=== PATIENT | male | born 1945 | race Caucasian/White ===

== ENCOUNTER 2018-04-17 20:19 | Inpatient (IN) | payer MEDICARE, MEDICAID ==
[~2018-04-17] VITALS: Ht 170.2 cm; Wt 69.0 kg
[2018-04-17] MEDS ORDERED: PANTOPRAZOLE SODIUM 40 MG/VIAL IV ONE (21:00)
[2018-04-17 21:39] LABS: BASOPHILS % 1.2 % (0.0-2.0); EOSINOPHILS % 1.4 % (0.0-5.0); HEMATOCRIT. 43.7 % (42.0-52.0); HEMOGLOBIN. 14.9 g/dL (14.0-18.0); LYMPHOCYTES % 18.5 % (20.0-50.0); MEAN CORPUSCULAR HEMOGLOBIN 32.1 pg (28.0-32.0); MEAN CORPUSCULAR VOLUME 94.2 fL (80.0-94.0); MEAN PLATELET VOLUME 7.2 fl (7.4-10.4); MONOCYTES % 10.6 % (2.0-8.0); NEUTROPHILS % 68.3 % (40.0-76.0); PLATELET 166 x1000/uL (130-400); RED BLOOD CELL COUNT 4.64 mill/uL (4.7-6.1); RED CELL DISTRIBUTION WIDTH 16.2 % (11.6-14.6)
[2018-04-17 21:42] LABS: PROTHROMBIN TIME 9.8 sec (9.1-11.1)
[2018-04-17 21:45] LABS: CHLORIDE 98 mEq/L (98-107); ETHANOL BLOOD 225 mg/dL
[2018-04-17] MEDS ORDERED: SODIUM CHLORIDE 0.9% 1,000 ML IV ONE (22:33)
[2018-04-18] MEDS ORDERED: LORAZEPAM 2MG/ML CPJ IV NR (03:45)
[2018-04-18 04:00] VITALS: BP 122/74
[2018-04-18 05:42] VITALS: BP 122/74
[2018-04-18] MEDS ORDERED: ACETAMINOPHEN 325MG TABLET PO PRN (07:15)
[2018-04-18] MEDS ORDERED: SODIUM CHLORIDE 0.9% 1,000 ML IV SCH (07:15)
[2018-04-18] MEDS ORDERED: LORAZEPAM 2MG/ML CPJ IV PRN (07:15)
[2018-04-18] MEDS ORDERED: CALCIUM GLUCONATE 100MG/ML 10ML VIAL IV ONE (07:15)
[2018-04-18] MEDS ORDERED: PANTOPRAZOLE 40MG DR TABLET PO SCH (07:20)
[2018-04-18] MEDS ORDERED: CALCIUM GLUCONATE 1,000 MG in DEXTROSE 5% WATER 50 ML IV SCH (08:00)
[2018-04-18] MEDS ORDERED: MAGNESIUM SULFATE 2 GM in DEXTROSE 5% WATER 50 ML IV SCH (08:00)
[2018-04-18] MEDS: POTASSIUM CHLORIDE 10MEQ TABLET SR PO SCH ×3 (08:24→16:33)
[2018-04-18] MEDS ORDERED: FOLIC ACID 1MG TABLET PO SCH (09:00)
[2018-04-18] MEDS ORDERED: ASPIRIN 81MG TABLET PO SCH (09:00)
[2018-04-18] MEDS ORDERED: ENOXAPARIN 40MG/0.4ML SYR SUBCUT SCH (09:00)
[2018-04-18 12:00] VITALS: BP 161/76
[2018-04-18 14:04] LABS: HEMATOCRIT. 42.9 % (42.0-52.0); HEMOGLOBIN. 14.6 g/dL (14.0-18.0); MEAN CORPUSCULAR VOLUME 94.3 fL (80.0-94.0); PLATELET 155 x1000/uL (130-400); RED BLOOD CELL COUNT 4.56 mill/uL (4.7-6.1); RED CELL DISTRIBUTION WIDTH 16.3 % (11.6-14.6)
[2018-04-18] MEDS ORDERED: FOLIC ACID 1 MG, MVI, ADULT NO.1 10 ML, THIAMINE HCL 100 MG in DEXT 5%/0.45% NACL 1000M... IV SCH ×4 (15:00)
[2018-04-18 15:04] LABS: CHLORIDE 102 mEq/L (98-107)
[2018-04-18 15:11] LABS: AMMONIA 35 uMol/L (<32)
[2018-04-18 16:07] LABS: HEPATITIS B SURFACE ANTIGEN NEGATIVE
[2018-04-18] MEDS: CHLORDIAZEPOXIDE 25MG CAPSULE PO SCH ×2 (16:33→21:25)
[2018-04-18] MEDS: NICOTINE 14MG PATCH TD SCH (16:34)
[2018-04-18 16:35] LABS: HEPATITIS B CORE AB IGM NEGATIVE
[2018-04-18 16:37] LABS: HEPATITIS A AB IGM NEGATIVE (NEGATIVE)
[2018-04-18 17:16] LABS: CREATINE KINASE MB FRACTION 5.2 ng/mL (0.5-3.6)
[2018-04-18 19:17] LABS: HEMATOCRIT 43.1 % (42.0-52.0); HEMOGLOBIN 14.7 g/dL (14.0-18.0)
[2018-04-18 19:18] LABS: PLATELET ESTIMATE NORMAL
[2018-04-18 20:00] VITALS: BP 136/80
[2018-04-18] MEDS: MORPHINE SULFATE 4 MG/ML CPJ (NOT FOR IM USE) IV PRN (20:36)
[2018-04-19] VITALS (14 sets, daily range): BP systolic 92–155; BP diastolic 52–93
[2018-04-19] MEDS: CHLORDIAZEPOXIDE 25MG CAPSULE PO SCH ×3 (05:59→20:13)
[2018-04-19] MEDS ORDERED: SODIUM BICARBONATE 4% (2.4MEQ) 5ML VIAL IV ONE (07:36)
[2018-04-19] MEDS ORDERED: CEFAZOLIN 1000MG PREMIX 50 ML IV ONE ×2 (07:36→08:45)
[2018-04-19] MEDS ORDERED: IOHEXOL-300 100 ML BOTTLE ONE (07:37)
[2018-04-19] MEDS ORDERED: LIDOCAINE HCL 1% 20ML VIAL (Pyxis) INJ ONE (07:37)
[2018-04-19] MEDS ORDERED: PANTOPRAZOLE SODIUM 40 MG/VIAL IV SCH (09:00)
[2018-04-19] MEDS: PANTOPRAZOLE SODIUM 40 MG/VIAL IV SCH ×2 (09:08→18:05)
[2018-04-19] MEDS: NICOTINE 14MG PATCH TD SCH (09:08)
[2018-04-19 10:59] LABS: HEMATOCRIT 50.6 % (42.0-52.0); MEAN CORPUSCULAR VOLUME 95.3 fL (80.0-94.0); PLATELET 140 x1000/uL (130-400); RED CELL DISTRIBUTION WIDTH 16.5 % (11.6-14.6)
[2018-04-19 11:08] LABS: CHLORIDE 102 mEq/L (98-107)
[2018-04-19] MEDS: MORPHINE SULFATE 4 MG/ML CPJ (NOT FOR IM USE) IV PRN (12:14)
[2018-04-19] MEDS ORDERED: SODIUM CHLORIDE 0.9% 500 ML IV NR (15:45)
[2018-04-19] MEDS: MVI, ADULT NO.1 10 ML, FOLIC ACID 1 MG, THIAMINE HCL 100 MG in SODIUM CHLORIDE 0.9% 1,0... IV SCH ×4 (18:05)
[2018-04-19 20:27] LABS: HEMATOCRIT 46.1 % (42.0-52.0); HEMOGLOBIN 15.3 g/dL (14.0-18.0)
[2018-04-20 02:45] VITALS: BP 106/60
[2018-04-20 04:00] VITALS: BP 91/47
[2018-04-20] MEDS: CHLORDIAZEPOXIDE 25MG CAPSULE PO SCH ×3 (05:54→21:10)
[2018-04-20 07:04] LABS: HEMOGLOBIN 14.7 g/dL (14.0-18.0); MEAN CORPUSCULAR HEMOGLOBIN 32.2 pg (28.0-32.0); MEAN CORPUSCULAR VOLUME 94.4 fL (80.0-94.0); PLATELET 137 x1000/uL (130-400); RED BLOOD CELL COUNT 4.55 mill/uL (4.7-6.1); RED CELL DISTRIBUTION WIDTH 16.6 % (11.6-14.6)
[2018-04-20 07:27] VITALS: BP 114/76
[2018-04-20 08:01] LABS: CHLORIDE 109 mEq/L (98-107)
[2018-04-20] MEDS: NICOTINE 14MG PATCH TD SCH (09:34)
[2018-04-20] MEDS: MVI, ADULT NO.1 10 ML, FOLIC ACID 1 MG, THIAMINE HCL 100 MG in SODIUM CHLORIDE 0.9% 1,0... IV SCH ×4 (09:34)
[2018-04-20] MEDS: PANTOPRAZOLE SODIUM 40 MG/VIAL IV SCH ×2 (09:34→19:13)
[2018-04-20 12:48] VITALS: BP 106/66
[2018-04-20 16:49] VITALS: BP 112/70
[2018-04-20 20:27] VITALS: BP 93/56
[2018-04-21] VITALS (8 sets, daily range): BP systolic 99–139; BP diastolic 58–95
[2018-04-21] MEDS: CHLORDIAZEPOXIDE 25MG CAPSULE PO SCH ×2 (06:05→14:51)
[2018-04-21] MEDS: NICOTINE 14MG PATCH TD SCH (09:49)
[2018-04-21] MEDS: PANTOPRAZOLE SODIUM 40 MG/VIAL IV SCH ×2 (09:49→17:00)
[2018-04-21 12:31] LABS: HEMATOCRIT 42.6 % (42.0-52.0); HEMOGLOBIN 14.4 g/dL (14.0-18.0); MEAN CORPUSCULAR HEMOGLOBIN 32.1 pg (28.0-32.0); MEAN CORPUSCULAR VOLUME 94.8 fL (80.0-94.0); PLATELET 130 x1000/uL (130-400); RED BLOOD CELL COUNT 4.49 mill/uL (4.7-6.1); RED CELL DISTRIBUTION WIDTH 16.5 % (11.6-14.6)
[2018-04-21 12:38] LABS: CHLORIDE 109 mEq/L (98-107)
[2018-04-21] MEDS: MVI, ADULT NO.1 10 ML, FOLIC ACID 1 MG, THIAMINE HCL 100 MG in SODIUM CHLORIDE 0.9% 1,0... IV SCH ×4 (14:51)
== END 2018-04-21 20:15 | disposition home or self-care (01) | DRG 907 ==
LOC: ER 20:19 → 6WST 23:17 → EDBEDREQ 23:21 → EDBEDREQTM 23:21 → ENRESERV 04-18 03:38
PROVIDERS: ADMIT Internal Medicine; ATTEND Internal Medicine
PROC: 06H03DZ Insertion of Intraluminal Device into Inferior Vena Cava, Percutaneous Approach (ICD-10-PCS; principal; 2018-04-19)
PROC: B5191ZA Fluoroscopy of Inferior Vena Cava using Low Osmolar Contrast, Guidance (ICD-10-PCS; 2018-04-19)
DX: T51.0X1A Toxic effect of ethanol, accidental (unintentional), initial encounter (principal); G93.41 Metabolic encephalopathy; R45.851 Suicidal ideations; K92.2 Gastrointestinal hemorrhage, unspecified; I82.413 Acute embolism and thrombosis of femoral vein, bilateral; I82.433 Acute embolism and thrombosis of popliteal vein, bilateral; R58 Hemorrhage, not elsewhere classified; M19.90 Unspecified osteoarthritis, unspecified site; I50.9 Heart failure, unspecified; R29.6 Repeated falls; R32 Unspecified urinary incontinence; K80.20 Calculus of gallbladder without cholecystitis without obstruction; D64.9 Anemia, unspecified; D72.819 Decreased white blood cell count, unspecified; F17.210 Nicotine dependence, cigarettes, uncomplicated; F32.9 Major depressive disorder, single episode, unspecified; Z79.82 Long term (current) use of aspirin; Z91.19 Patient's noncompliance with other medical treatment and regimen; Y92.89 Other specified places as the place of occurrence of the external cause
CPT/HCPCS: 36415; 37191; 71045; 76700; 80076; 82140; 82270; 82550; 82553; 83880; 84484; 85007; 85014; 85018; 85027; 86705; 86709; 86803; 86850; 86900; 87340; 93005; 93306; 93970; 96361; 96374; 99285; 99406; C1769; C1880; C9113; G0482; J0610; J0690; J1644; J1650; J2060; J2270; J3411; J3475; J3490; J7030; J7040; J7060; Q9967

== ENCOUNTER 2018-09-27 13:26 | Inpatient (IN) | payer MEDICARE, MEDICAID ==
[2018-09-27] VITALS (31 sets, daily range): BP systolic 84–163; BP diastolic 41–98
[~2018-09-27] VITALS: Ht 162.6 cm; Wt 79.8 kg
[2018-09-27] MEDS ORDERED: SODIUM CHLORIDE 0.9% 1,000 ML IV ONE (14:08)
[2018-09-27 14:25] LABS: HEMATOCRIT. 47.5 % (42.0-52.0); HEMOGLOBIN. 16.3 g/dL (14.0-18.0); MEAN CORPUSCULAR HEMOGLOBIN 29.6 pg (28.0-32.0); MEAN CORPUSCULAR VOLUME 86.2 fL (80.0-94.0); MEAN PLATELET VOLUME 7.8 fl (7.4-10.4); PLATELET 179 x1000/uL (130-400); RED CELL DISTRIBUTION WIDTH 14.4 % (11.6-14.6)
[2018-09-27 14:30] LABS: CHLORIDE 101 mEq/L (98-107)
[2018-09-27 14:31] LABS: PROTHROMBIN TIME 10.7 sec (9.6-11.0)
[2018-09-27 14:34] LABS: ETHANOL BLOOD < 10 mg/dL
[2018-09-27 14:37] LABS: LDL CHOLESTEROL 126 mg/dL (5-100)
[2018-09-27 14:45] LABS: PLATELET ESTIMATE NORMAL
[2018-09-27] MEDS ORDERED: DEXT 5%/0.45% NACL 1000ML 1,000 ML IV SCH (15:15)
[2018-09-27] MEDS ORDERED: ACETAMINOPHEN 650MG SUPP PR PRN (15:15)
[2018-09-27] MEDS ORDERED: NA PHOS,M-B/NA PHOS,DI-BA ENEMA 118ML PR PRN (15:15)
[2018-09-27] MEDS ORDERED: DIPHENHYDRAMINE 50MG/ML VIAL IV PRN (15:15)
[2018-09-27] MEDS ORDERED: ONDANSETRON HCL 4MG/2ML INJ IV PRN (15:15)
[2018-09-27] MEDS ORDERED: ACETAMINOPHEN 325MG TABLET PO PRN (15:15)
[2018-09-27] MEDS ORDERED: IPRATROPIUM/ALBUTEROL 0.5-3(2.5)MG/3ML NEB INH PRN (15:15)
[2018-09-27] MEDS ORDERED: MAGNESIUM/ALUMINUM HYDROXIDE/SIMETHICONE 30ML UDC PO PRN (15:15)
[2018-09-27] MEDS ORDERED: CLONIDINE 0.1MG TABLET PO PRN (15:15)
[2018-09-27 15:28] LABS: CLARITY URINE CLEAR (CLEAR); COLOR URINE YELLOW (YELLOW); KETONES URINE 1+ (NEGATIVE); LEUKOCYTE ESTERASE URINE NEGATIVE (NEGATIVE); NITRITE URINE NEGATIVE (NEGATIVE); OCCULT BLOOD URINE 2+ (NEGATIVE); PH URINE 8.5 (4.5-8.0); PROTEIN URINE 1+ (NEGATIVE); SPECIFIC GRAVITY URINE 1.018 (1.005-1.030)
[2018-09-27] MEDS ORDERED: LORAZEPAM 2MG/ML CPJ IV PRN (15:30)
[2018-09-27 15:39] LABS: OPIATES URINE SCREEN NEGATIVE (NEGATIVE)
[2018-09-27 15:40] LABS: *AMPHETAMINES SCREEN URINE NEGATIVE (NEGATIVE); *BARBITURATES SCREEN URINE NEGATIVE (NEGATIVE); *BENZODIAZEPINES SCREEN URINE NEGATIVE (NEGATIVE); *COCAINE SCREEN URINE NEGATIVE (NEGATIVE); CANNABINOID URINE SCREEN NEGATIVE (NEGATIVE); METHADONE URINE SCREEN NEGATIVE (NEGATIVE); PHENCYCLIDINE URINE SCREEN NEGATIVE (NEGATIVE)
[2018-09-27] MEDS ORDERED: AZITHROMYCIN 500 MG in DEXT 5% WATER 250 ML IV NR (15:45)
[2018-09-27] MEDS ORDERED: SODIUM CHLORIDE 0.9% 1000ML BAG (SEPSIS BOLUS) IV ONE (15:45)
[2018-09-27] MEDS ORDERED: CEFTRIAXONE 1 G PREMIX 50 ML IV NR (15:45)
[2018-09-27] MEDS ORDERED: SODIUM CHLORIDE 0.9% IV SCH (16:00)
[2018-09-27] MEDS: DEXT 5%/0.45% NACL 1000ML 1,000 ML IV SCH (17:45)
[2018-09-27] MEDS ORDERED: NICARDIPINE 100 MG in SODIUM CHLORIDE 0.9% 60 ML IV PRN (18:00)
[2018-09-27] MEDS ORDERED: MORPHINE SULFATE 4 MG/ML CPJ (NOT FOR IM USE) IV PRN (18:00)
[2018-09-27] MEDS: PIPERACILLIN/TAZ 3.375G PREMIX 50 ML IV SCH ×2 (18:46→23:52)
[2018-09-27] MEDS: MVI, ADULT NO.1 10 ML, THIAMINE HCL 100 MG, FOLIC ACID 1 MG in DEXT 5%/0.45% NACL 1000M... IV SCH ×4 (18:46)
[2018-09-27] MEDS ORDERED: VANCOMYCIN 1500MG in DEXTROSE 5% WATER 250ML IV NR (20:00)
[2018-09-27] MEDS: LEVETIRACETAM 500 MG in SODIUM CHLORIDE 0.9% 100 ML IV SCH (20:36)
[2018-09-27] MEDS: CHLORDIAZEPOXIDE 25MG CAPSULE PO SCH (21:04)
[2018-09-27 22:59] LABS: CREATINE KINASE MB FRACTION 1.7 ng/mL (0.5-3.6)
[2018-09-28] VITALS (60 sets, daily range): BP systolic 66–167; BP diastolic 27–93
[2018-09-28 05:03] LABS: HEMATOCRIT. 43.1 % (42.0-52.0); HEMOGLOBIN. 14.7 g/dL (14.0-18.0); MEAN CORPUSCULAR HEMOGLOBIN 29.2 pg (28.0-32.0); MEAN CORPUSCULAR VOLUME 85.2 fL (80.0-94.0); MEAN PLATELET VOLUME 7.9 fl (7.4-10.4); PLATELET 138 x1000/uL (130-400); RED BLOOD CELL COUNT 5.06 mill/uL (4.7-6.1); RED CELL DISTRIBUTION WIDTH 14.4 % (11.6-14.6)
[2018-09-28 05:13] LABS: CREATINE KINASE MB FRACTION 3.6 ng/mL (0.5-3.6)
[2018-09-28] MEDS: CHLORDIAZEPOXIDE 25MG CAPSULE PO SCH ×3 (06:00→20:59)
[2018-09-28] MEDS: PIPERACILLIN/TAZ 3.375G PREMIX 50 ML IV SCH ×3 (06:01→19:29)
[2018-09-28] MEDS: VANCOMYCIN 750 MG PREMIX 150 ML IV SCH ×2 (06:01→18:09)
[2018-09-28] MEDS: DEXT 5%/0.45% NACL 1000ML 1,000 ML IV SCH (06:02)
[2018-09-28] MEDS: LEVETIRACETAM 500 MG in SODIUM CHLORIDE 0.9% 100 ML IV SCH ×2 (08:49→20:59)
[2018-09-28 08:59] LABS: CHLORIDE 105 mEq/L (98-107)
[2018-09-28 09:06] LABS: LDL CHOLESTEROL 89 mg/dL (5-100)
[2018-09-28 09:07] LABS: HDL CHOLESTEROL 39 mg/dL (40-59)
[2018-09-28 09:08] LABS: T4 FREE 1.12 ng/dL (0.76-1.46)
[2018-09-28 09:40] LABS: CREATINE KINASE 1066 IU/L (39-308)
[2018-09-28 10:18] LABS: PLATELET ESTIMATE NORMAL
[2018-09-28] MEDS ORDERED: GADOBENATE DIMEGLUMINE 529 MG/ML 10ML IV ONE (11:05)
[2018-09-28] MEDS ORDERED: LACTULOSE 20G/30ML UDC PO NR (12:25)
[2018-09-28 12:48] LABS: BG BASE EXCESS -1.3 mmol/L (-2.0-2.0); BG CARBOXYHEMOGLOBIN 0.5 % (0.5-1.5); BG DEOXYHEMOGLOBIN 5.5 % (0.0-5.0); BG FRACTION INSPIRED OXYGEN 21; BG HCO3 ACT 22.6 mmol/L (22.0-26.0); BG METHEMOGLOBIN 0.3 % (0.0-1.5); BG OXYGEN SATURATION 94.5 % (92.0-98.5); BG OXYHEMOGLOBIN 93.7 % (94.0-97.0); BG PCO2 35.7 mmHg (35.0-45.0); BG PH 7.419 (7.350-7.450); BG PO2 69.7 mmHg (75.0-100.0); BG SAMPLE SITE RIGHT BRACHIAL; BG VENT MODE ROOM AIR
[2018-09-28] MEDS: DEXT 5%/0.9% NACL 1,000 ML IV SCH ×2 (13:03→22:15)
[2018-09-28] MEDS: MVI, ADULT NO.1 10 ML, THIAMINE HCL 100 MG, FOLIC ACID 1 MG in DEXT 5%/0.45% NACL 1000M... IV SCH ×4 (19:28)
[2018-09-29] VITALS (40 sets, daily range): BP systolic 75–121; BP diastolic 33–77
[2018-09-29] MEDS: PIPERACILLIN/TAZ 3.375G PREMIX 50 ML IV SCH ×3 (00:10→12:54)
[2018-09-29] MEDS: IPRATROPIUM/ALBUTEROL 0.5-3(2.5)MG/3ML NEB HHN SCH ×4 (01:06→20:36)
[2018-09-29 04:43] LABS: HEMATOCRIT 39.7 % (42.0-52.0); HEMOGLOBIN 13.8 g/dL (14.0-18.0); MEAN CORPUSCULAR HEMOGLOBIN 29.5 pg (28.0-32.0); MEAN CORPUSCULAR VOLUME 84.8 fL (80.0-94.0); PLATELET 131 x1000/uL (130-400); RED BLOOD CELL COUNT 4.68 mill/uL (4.7-6.1); RED CELL DISTRIBUTION WIDTH 14.6 % (11.6-14.6)
[2018-09-29 04:51] LABS: CHLORIDE 110 mEq/L (98-107)
[2018-09-29] MEDS: CHLORDIAZEPOXIDE 25MG CAPSULE PO SCH (05:05)
[2018-09-29] MEDS: VANCOMYCIN 750 MG PREMIX 150 ML IV SCH (06:23)
[2018-09-29] MEDS: LEVETIRACETAM 500 MG in SODIUM CHLORIDE 0.9% 100 ML IV SCH ×2 (09:34→22:17)
[2018-09-29 10:14] LABS: CREATINE KINASE MB FRACTION 2.7 ng/mL (0.5-3.6)
[2018-09-29] MEDS ORDERED: CHLORDIAZEPOXIDE 25MG CAPSULE PO PRN (11:30)
[2018-09-29] MEDS: VANCOMYCIN 1250MG in DEXTROSE 5% WATER 250ML IV SCH (14:41)
[2018-09-29] MEDS ORDERED: APIX2.5T MT (18:00)
[2018-09-29] MEDS: LEVOFLOXACIN 500MG PREMIX 100 ML IV SCH (18:51)
[2018-09-29] MEDS: MVI, ADULT NO.1 10 ML, THIAMINE HCL 100 MG, FOLIC ACID 1 MG in DEXT 5%/0.45% NACL 1000M... IV SCH ×4 (23:27)
[2018-09-30] VITALS: BP 97/58
[2018-09-30] MEDS: IPRATROPIUM/ALBUTEROL 0.5-3(2.5)MG/3ML NEB HHN SCH ×4 (01:22→20:20)
[2018-09-30] MEDS: VANCOMYCIN 1250MG in DEXTROSE 5% WATER 250ML IV SCH ×2 (02:46→16:45)
[2018-09-30 04:00] VITALS: BP 113/69
[2018-09-30 06:48] LABS: CHLORIDE 112 mEq/L (98-107)
[2018-09-30 07:16] LABS: BASOPHILS % 0.6 % (0.0-2.0); EOSINOPHILS % 4.3 % (0.0-5.0); HEMATOCRIT. 39.9 % (42.0-52.0); HEMOGLOBIN. 13.8 g/dL (14.0-18.0); LYMPHOCYTES % 20.8 % (20.0-50.0); MEAN CORPUSCULAR HEMOGLOBIN 29.6 pg (28.0-32.0); MEAN CORPUSCULAR VOLUME 85.3 fL (80.0-94.0); NEUTROPHILS % 64.3 % (40.0-76.0); PLATELET 157 x1000/uL (130-400); RED BLOOD CELL COUNT 4.68 mill/uL (4.7-6.1)
[2018-09-30 08:00] VITALS: BP 117/72
[2018-09-30] MEDS: LEVETIRACETAM 500 MG in SODIUM CHLORIDE 0.9% 100 ML IV SCH ×2 (08:43→21:15)
[2018-09-30 12:00] VITALS: BP 99/56
[2018-09-30] MEDS: LEVOFLOXACIN 500MG PREMIX 100 ML IV SCH (16:52)
[2018-09-30 20:00] VITALS: BP 98/125
[2018-10-01] VITALS: BP 104/62
[2018-10-01] MEDS: IPRATROPIUM/ALBUTEROL 0.5-3(2.5)MG/3ML NEB HHN SCH ×4 (01:13→15:11)
[2018-10-01] MEDS: VANCOMYCIN 1250MG in DEXTROSE 5% WATER 250ML IV SCH ×2 (02:07→14:44)
[2018-10-01 04:00] VITALS: BP 123/72
[2018-10-01 08:00] VITALS: BP 112/58
[2018-10-01] MEDS: LEVETIRACETAM 500 MG in SODIUM CHLORIDE 0.9% 100 ML IV SCH (09:10)
[2018-10-01 12:00] VITALS: BP 95/61
[2018-10-01 15:52] LABS: CHLORIDE 109 mEq/L (98-107)
[2018-10-01 16:00] VITALS: BP 100/61
[2018-10-01] MEDS: LEVOFLOXACIN 500MG PREMIX 100 ML IV SCH (17:15)
[2018-10-01 19:28] VITALS: BP 126/79
[2018-10-02] MEDS ORDERED: LEVOFLOXACIN 500MG TABLET PO SCH (11:00)
== END 2018-10-01 20:00 | DRG 85 ==
LOC: ER 13:26 → MICUSO 15:33 → EDBEDREQSVC 15:35 → EDBEDREQ 15:35 → 7WST 09-29 17:20
PROVIDERS: ADMIT Internal Medicine; ATTEND Internal Medicine
DX: S06.5X0A Traumatic subdural hemorrhage without loss of consciousness, initial encounter (principal); J18.9 Pneumonia, unspecified organism; G93.40 Encephalopathy, unspecified; E72.20 Disorder of urea cycle metabolism, unspecified; F10.239 Alcohol dependence with withdrawal, unspecified; M62.82 Rhabdomyolysis; E86.0 Dehydration; K80.20 Calculus of gallbladder without cholecystitis without obstruction; N40.0 Benign prostatic hyperplasia without lower urinary tract symptoms; E78.5 Hyperlipidemia, unspecified; W18.39XA Other fall on same level, initial encounter; R59.0 Localized enlarged lymph nodes; Y93.89 Activity, other specified; Y92.89 Other specified places as the place of occurrence of the external cause; Y99.8 Other external cause status; Z86.718 Personal history of other venous thrombosis and embolism; Z91.19 Patient's noncompliance with other medical treatment and regimen; Z95.828 Presence of other vascular implants and grafts
CPT/HCPCS: 36415; 36600; 70553; 71045; 74176; 76700; 80048; 80061; 80202; 80305; 80320; 82140; 82375; 82550; 82553; 82805; 82962; 83605; 83721; 83735; 84145; 84153; 84439; 84443; 84484; 85027; 85651; 92610; 93005; 93306; 93880; 93970; 96374; 97116; 97162; 97530; 99291; A6261; A9577; J0456; J0696; J1953; J1956; J2270; J2543; J3370; J3411; J3490; J7042; J7050; J7060; J7620; G0103; G0480